=== PATIENT | female | born 1945 | race Two or more races ===

== ENCOUNTER 2019-05-27 06:25 | Day surgery (SDC) | payer BC ==
[~2019-05-27] VITALS: Ht 147.3 cm; Wt 55.0 kg
[2019-05-27] VITALS (10 sets, daily range): BP systolic 103–166; BP diastolic 39–70; PULSE 58–70; RESP 14–21; Ht 147.3 cm; Wt 55.0 kg
[~2019-05-27 06:25] MED LIST: ALLO100T PO; ASPI81TA52 PO; ATOR-2 PO; BALANCED SALT SOLN 500 ML OPH IRRIG OPER ONE; BUME1TAB3 PO; CIPROFLOXACIN 0.3% 2.5 ML OPH (PRE-OP) OPER SCH; CLOP75TA27 PO; CYCLOPENTOLATE 1% 2 ML OPH (PRE-OP) OPER SCH; DICLOFENAC 0.1% 2.5 ML OPH (PRE-OP) OPER SCH; DOCU-159 PO; ERGO500013 PO; GABA100C14 PO; INSU100I33 SC; ISOS60TA PO; LEVO50TA71 PO; METO-448 PO; PHENYLephrine 2.5% 15 ML OPH (PRE-OP) OPER SCH; TETRACAINE 0.5% 4 ML OPH (PRE-OP) OPER SCH; TROPICAMIDE 1% 15 ML OPH (PRE OP) OPER SCH
[2019-05-27] MEDS ORDERED: EPINEPHrine 1 MG INJ ONE (07:54)
[2019-05-27] MEDS ORDERED: MOXIFLOXACIN 0.5% 3 ML OPH ONE (07:54)
[2019-05-27] MEDS ORDERED: TETRACAINE 0.5% 4 ML OPH ONE (07:54)
[2019-05-27] MEDS ORDERED: NA HYALURONATE/CHONDROITIN 0.5 ML SYG ONE (07:54)
[2019-05-27] MEDS ORDERED: LIDOCAINE 1.5%/EPI MPF (SDV) 30 ML VIAL INJ ONE (08:33)
[2019-05-27] MEDS ORDERED: hydrALAzine 20 MG INJ ONE (08:41)
[2019-05-27] MEDS ORDERED: DIPHENHYDRAMINE 50 MG INJ ONE (09:04)
[2019-05-27] MEDS ORDERED: TOBRAMYCIN/DEXAMETH 3.5 GM OPH OINT ONE (09:21)
== END 2019-05-27 11:12 | disposition home or self-care (01) ==
LOC: SDS 06:25
PROVIDERS: ATTEND Ophthalmology
DX: H26.9 Unspecified cataract (principal); E11.22 Type 2 diabetes mellitus with diabetic chronic kidney disease; N18.4 Chronic kidney disease, stage 4 (severe); Z79.4 Long term (current) use of insulin
CPT/HCPCS: 66984; 82962; J0171; J0360; J1200; J3010; Z7610; V2632